=== PATIENT | male | born 1985 | race American Indian/Alaskan Native ===

== ENCOUNTER 2021-07-01 17:24 | Emergency (ER) | payer OTHER ==
[2021-07-01] MEDS ORDERED: ACETAMINOPHEN 500 MG TAB PO ONE (20:35)
[2021-07-01] MEDS ORDERED: METOCLOPRAMIDE 10 MG TAB PO ONE (20:35)
[2021-07-01] MEDS ORDERED: diphenhydrAMINE 25 MG CAP PO ONE (20:35)
[2021-07-01] MEDS ORDERED: amLODIPine 5 MG TAB PO ONE (20:36)
[2021-07-01 20:51] VITALS: BP 143/97
[2021-07-01 21:05] LABS: Basophils % (Auto) 0.6 % (0.0-1.8); Eosinophils # (Auto) 0.1 K/mm3 (0.0-0.4); Hemoglobin 14.3 gm/dl (11.8-15.2); Lymphocytes # (Auto) 2.9 K/mm3 (1.2-5.4); Lymphocytes % (Auto) 42.7 % (13.4-35.0); Mean Corpuscular HGB Conc 34 % (32-34); Mean Corpuscular Volume 82 fl (84-94); Monocytes # (Auto) 0.4 K/mm3 (0.0-0.8); Monocytes % (Auto) 6.7 % (0.0-7.3); Platelet Count 162 K/mm3 (140-440); Red Blood Count 5.16 M/mm3 (3.65-5.03); Red Cell Distribution Width 15.2 % (13.2-15.2)
[2021-07-01 21:21] LABS: Alanine Aminotransferase 17 units/L (7-56); Albumin 4.6 g/dL (3.9-5); BUN/Creatinine Ratio 13; Blood Urea Nitrogen 13 mg/dL (9-20); Calcium 9.6 mg/dL (8.4-10.2); Hemolysis Index 25
--- NOTE | 2021-07-01 21:35 | Emergency Department Report ---
ED General Adult HPI - General Chief complaint: Weakness Stated complaint: LT ARM WEAKNESS Time Seen by Provider: 07/01/21 20:33 Source: EMS Mode of arrival: Stretcher Limitations: No Limitations - History of Present Illness Initial comments: Patient a 35-year-old male with history of hypertension and diabetes type 2,& obesity. 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 Patient presents for left arm pain and numbness x1 episode today that symptoms have resolved at this time. Patient describes symptoms as tingling burning aching 5/10. Patient denies fall injury or trauma. There is no neck pain no history of neck strain, injury or pain. 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 Patient denies chest pain there is no nausea no vomiting no dizziness no lightheadedness. Patient has not taken BP medications today BP is treated with amlodipine 10 mg p.o. daily, DMII controled with Rybelus po daily. Today symptoms were exacerbated by movement and palpation. Symptoms are relieved by nothing tried. However symptoms are resolved at this time. Severity scale (0 -10): 6 - Related Data Previous Rx's Medication Instructions Recorded Last Taken Type Naproxen 500 mg PO BID PRN #30 tab 07/01/21 Unknown Rx Allergies Allergy/AdvReac Type Severity Reaction Status Date / Time No Known Allergies Allergy Unverified 07/01/21 17:37 ED Review of Systems ROS: Stated complaint: LT ARM WEAKNESS Other details as noted in HPI Constitutional: denies: chills, fever Eyes: denies: eye pain, eye discharge, vision change ENT: denies: ear pain, throat pain Respiratory: denies: cough, shortness of breath, wheezing Cardiovascular: denies: chest pain, palpitations, dyspnea on exertion, orthopnea, paroxysmal nocturnal dyspnea Endocrine: no symptoms reported Gastrointestinal: denies: abdominal pain, nausea, vomiting, diarrhea Genitourinary: denies: urgency, dysuria Musculoskeletal: as per HPI Skin: denies: rash, lesions Neurological: denies: headache, weakness, paresthesias Psychiatric: denies: anxiety, depression Hematological/Lymphatic: denies: easy bleeding, easy bruising ED Past Medical Hx - Past Medical History Previous Medical History?: Yes Hx Hypertension: Yes Hx Diabetes: Yes - Surgical History Past Surgical History?: No - Medications Home Medications: Home Medications Medication Instructions Recorded Confirmed Last Taken Type Naproxen 500 mg PO BID PRN #30 tab 07/01/21 Unknown Rx ED Physical Exam - General Limitations: No Limitations General appearance: alert, in no apparent distress - Head Head exam: Present: atraumatic, normocephalic - Eye Eye exam: Present: normal appearance, EOMI Pupils: Present: normal accommodation - ENT ENT exam: Present: mucous membranes moist - Neck Neck exam: Present: normal inspection, full ROM. Absent: tenderness (No posterior vertebral point tenderness no paraspinous tenderness range of motion intact unrestricted to all quadrants.), meningismus, lymphadenopathy - Respiratory Respiratory exam: Present: normal lung sounds bilaterally. Absent: respiratory distress, wheezes, stridor, chest wall tenderness - Cardiovascular Cardiovascular Exam: Present: regular rate, normal rhythm, normal heart sounds. Absent: systolic murmur, diastolic murmur, rubs, gallop - GI/Abdominal GI/Abdominal exam: Present: soft, normal bowel sounds. Absent: distended, tenderness - Rectal Rectal exam: Present: deferred - Extremities Exam Extremities exam: Present: full ROM, normal capillary refill. Absent: tenderness - Expanded Upper Extremity Exam Left Shoulder Exam: Present: full ROM, other (Range of motion is intact and u nrestricted, shoulder drop intact supination pronation does not reproduce pain. Distal pulses intact +2 wind up operator equal bilaterally). Absent: tenderness, swelling, abrasion, laceration, ecchymosis, deformity, crepidus, dislocation, erythema, tenderness over AC joint Upper Arm exam: Present: full ROM. Absent: tenderness Elbow exam: Present: full ROM. Absent: tenderness Forearm Wrist exam: Present: full ROM. Absent: tenderness Hand Wrist exam: Present: full ROM. Absent: tenderness Neuro motor exam: Present: wrist extension intact, thumb opposition intact, thumb IP flexion intact, thumb adduction intact, fingers 2-5 abduction intact Vascular: Present: normal capillary refill - Back Exam Back exam: Present: normal inspection, full ROM. Absent: CVA tenderness (R), CVA tenderness (L) - Neurological Exam Neurological exam: Present: alert, oriented X3 - Psychiatric Psychiatric exam: Present: normal affect, normal mood - Skin Skin exam: Present: warm, dry, intact, normal color. Absent: rash ED Course Vital Signs 07/01/21 07/01/21 17:37 20:48 Pulse Rate 74 Respiratory 18 Rate Blood Pressure 143/97 Blood Pressure 146/91 [Left] O2 Sat by Pulse 98 Oximetry ED Medical Decision Making - Lab Data Result diagrams: 07/01/21 20:39 07/01/21 20:39 Labs 07/01/21 07/01/21 20:39 20:39 WBC 6.7 RBC 5.16 H Hgb 14.3 Hct 42.0 MCV 82 L MCH 28 MCHC 34 RDW 15.2 Plt Count 162 Lymph % (Auto) 42.7 H Johnson % (Auto) 6.7 Eos % (Auto) 1.0 Baso % (Auto) 0.6 Lymph # (Auto) 2.9 Johnson # (Auto) 0.4 Eos # (Auto) 0.1 Baso # (Auto) 0.0 Seg Neutrophils % 49.0 Seg Neutrophils # 3.3 Sodium 139 Potassium 3.6 Chloride 104.6 Carbon Dioxide 23 Anion Gap 15 BUN 13 Creatinine 1.0 Estimated GFR > 60 BUN/Creatinine Ratio 13 Glucose 86 Calcium 9.6 Total Bilirubin 0.30 AST 15 ALT 17 Alkaline Phosphatase 66 Troponin T < 0.010 Total Protein 7.5 Albumin 4.6 Albumin/Globulin Ratio 1.6 - EKG Data EKG shows normal: sinus rhythm, axis, intervals, QRS complexes, ST-T waves Rate: normal - EKG Data Interpretation: normal EKG (Sinus rhythm probable left atrial enlargement no ST elevated [place] interpreted by ED attending.) - Radiology Data Radiology results: report reviewed, image reviewed XR chest routine 2V INDICATION / CLINICAL INFORMATION: chest pain. COMPARISON: None available. FINDINGS: SUPPORT DEVICES: None. HEART /PULMONARY VASCULATURE: No significant abnormality. LUNGS / PLEURA: No significant pulmonary or pleural abnormality. No pneumothorax. ADDITIONAL FINDINGS: No significant additional findings. IMPRESSION: 1. No acute findings. Signer Name: Oz Samuel MD Signed: 07/01/2021 10:12 PM Workstation Name: [id number] Transcribed By: PARKER Dictated By: OZ SAMUEL MD Electronically Authenticated By: OZ SAMUEL MD Signed Date/Time: 07/01/212211 DD/ 11 TD/TT: - Medical Decision Making Chest x-ray: Normal no infiltrates no opacities, heart score 0, EKG normal sinus rhythm no ST elevated [place] interpreted by ED attending. Labs noted as normal negative troponin. Patient DC'd home in stable condition at this time. Patient will follow-up primary care doctor in 2 to 3 days. Return to emergency department should symptoms worsen. Critical care attestation.: If time is entered above; I have spent that time in minutes in the direct care of this critically ill patient, excluding procedure time. ED Disposition Clinical Impression: Upper extremity pain, lateral Qualifiers: Laterality: left Qualified Code(s): M79.602 - Pain in left arm Disposition: HOME / SELF CARE / HOMELESS Is pt being admited?: No Does the pt Need Aspirin: No Condition: Stable Instructions: Shoulder Pain Additional Instructions: Take medications as prescribed, take your hypertension and diabetes medicine as prescribed by your doctor. Shoulder exercises as directed. Return to emergency department should symptoms worsen. Prescriptions: Naproxen 500 mg PO BID PRN #30 tab PRN Reason: pain Referrals: ANDREY QUINTERO MD [Staff Physician] - 3-5 Days Forms: Work/School Release Form(ED) Time of Disposition: 22:24
--- NOTE | 2021-07-01 22:17 | XRay Report ---
XR chest routine 2V INDICATION / CLINICAL INFORMATION: chest pain. COMPARISON: None available. FINDINGS: SUPPORT DEVICES: None. HEART /PULMONARY VASCULATURE: No significant abnormality. LUNGS / PLEURA: No significant pulmonary or pleural abnormality. No pneumothorax. ADDITIONAL FINDINGS: No significant additional findings. IMPRESSION: 1. No acute findings. Signer Name: Rafal Haney MD Signed: 07/01/2021 10:12 PM Workstation Name: [id number]
--- NOTE | 2021-07-02 10:13 | Electrocardiograph Report ---
[facility] Test Date: 2021-07-01 Test Time: 21:31:50 Pat Name: SONIYA LAROSE Department: Room: Gender: M Car Wiper: Ana Laura BRITT : 1985 Requested By: KARY HUA Order Number: [id number] Reading MD: Jv Crowe Measurements Intervals [place] Rate: 69 P: 54 FL: 194 QRS: -1 QRSD: 99 T: 86 QT: 396 QTc: 424 Interpretive Statements Sinus rhythm Probable left atrial enlargement ST elev, probable normal early repol pattern No previous ECG available for comparison Electronically Signed On 07-02-2021 10:12:52 EDT by Jv Crowe
== END 2021-07-01 23:06 | disposition home or self-care (01) ==
LOC: ED 17:24
DX: M79.602 Pain in left arm (principal); I10 Essential (primary) hypertension; E11.9 Type 2 diabetes mellitus without complications
CPT/HCPCS: 36415; 71046; 80053; 84484; 85025; 93005; 99284